=== PATIENT | female | born 1975 | race Caucasian/White ===

== ENCOUNTER 2017-01-22 17:31 | Emergency (ER) | payer BC ==
[~2017-01-22] VITALS: Ht 165.1 cm; Wt 64.3 kg
[~2017-01-22 17:31] MED LIST: CITA40TA12 PO; LORA-741 PO
[2017-01-22 17:33] VITALS: TEMP 36.8; Ht 165.1 cm; Wt 64.3 kg
[2017-01-22] MEDS ORDERED: FLUO40CA8 PO (18:12)
[2017-01-22] MEDS ORDERED: RABIES VACCINE (IMOVAX) HUMAN DIPL CELL 2.5 INTER.UNIT/ML SYR IM. ONE (18:15)
[2017-01-22] MEDS ORDERED: RABIES IMMUNE GLOBULIN (HUMAN) 150 INTER.UNIT/ML 2 ML VIAL IM. ONE (18:15)
--- NOTE | 2017-01-22 18:23 | EMERGENCY ROOM VISIT NOTE ---
ED Visit Note First contact with patient: 17:43 CHIEF COMPLAINT: Bat exposure in house while sleeping last night HISTORY OF PRESENT ILLNESS: Patient is a 41-year-old white female who presents to the emergency department, accompanied by her daughter and for evaluation after there was a bat found in their home last evening while they were sleeping. Bat was flying around the room where the patient's and daughter were sleeping, but she notes that all of the bedroom doors were open. was able to trap the bat in a box and to take it outside. The patient is not aware of any direct contact she may have had with the bat. Patient spoke with her daughter's candle pourer today, and subsequently were referred to the Department of Health who directed them to the emergency department for rabies prophylaxis. She has no complaints. REVIEW OF SYSTEMS: Review of systems as per HPI. All other systems reviewed were negative. At least 6 systems reviewed. PMH: Electronic medical records are reviewed and summarized as above/below. See Problem List. SOCIAL HISTORY: Patient lives at home with her and daughter. She is employed. Drinks alcohol socially, nonsmoker. PHYSICAL EXAM: Vital Signs: Reviewed Nurse's notes. HEAD: Atraumatic, without temporal or scalp tenderness. EYES: PERRL, EOMI, no discharge or injection. SKIN: Normal. NEUROLOGICAL: Alert and cooperative. Sensory and motor functions grossly intact. EMERGENCY DEPARTMENT COURSE: The patient was seen and examined as above. Risks , benefits and alternatives were reviewed, and patient would like to proceed with post exposure prophylactic vaccinations. Patient was given Imovax IM and rabies immunoglobulin based on her weight. She was observed in the emergency department and discharged. The postexposure vaccination schedule with outlined with her. She was discharged home in good condition. Medication reconciliation: I attest that I have personally reviewed the patient' s current medication list. Blood pressure screening: Patient was found to have an elevated blood pressure and was referred to their primary doctor for recheck and further treatment. Patient does report a history of hypertension. Problem List Medical Problems: (1) Anxiety Status: Chronic (2) Anxiety reaction Status: Resolved (3) Dizziness Status: Resolved (4) Panic attacks Status: Chronic (5) Sinusitis Status: Resolved Current/Historical Medications Scheduled Fluoxetine (Prozac), 40 MG PO DAILY Lisinopril (Lisinopril), 10 MG PO DAILY Allergies Coded Allergies: No Known Allergies (Verified , 6/19/17) Vital Signs Date Time Temp Pulse Resp B/P (MAP) Pulse Ox O2 Delivery O2 Flow Rate FiO2 01/22/17 19:07 73 18 168/86 96 Room Air 01/22/17 17:33 36.8 67 20 150/98 97 Room Air Medications Administered Medications (Trade) Dose Ordered Sig/Rik Route Start Time Stop Time Status Last Admin Dose Admin Rabies Vaccine Human Diploid Cell (Imovax Rabies) 2.5 interunit ONCE ONCE IM. 01/22/17 18:15 01/22/17 18:16 DC 01/22/17 19:02 2.5 INTERUNIT Rabies Immune Globulin (Imogam Rabies Inj) 1,280 interunit ONCE ONCE IM. 01/22/17 18:15 01/22/17 18:16 DC 01/22/17 19:03 1,280 INTERUNIT Departure Information Impression Primary Impression: Need for post exposure prophylaxis for rabies Referrals Donte De La Rosa M.D. ([facility]) (PCP) Patient Instructions [facility] Additional Instructions May use ice to the injection sites as needed for pain and swelling. Tylenol or ibuprofen if needed for discomfort. Return to the emergency department on 01/25, 01/29 and 02/05 for the remainder of your vaccinations, sooner for any problems or concerns.
[2017-01-22 19:07] VITALS: BP 168/86; PULSE 73; O2SAT 96
== END 2017-01-22 19:19 | disposition home or self-care (01) ==
LOC: C.EDB 17:31 → C.EDD 19:19
DX: Z20.3 Contact with and (suspected) exposure to rabies (principal); Z23 Encounter for immunization; F41.9 Anxiety disorder, unspecified; Z79.899 Other long term (current) drug therapy

== ENCOUNTER 2017-01-25 16:27 | Emergency (ER) | payer BC ==
[~2017-01-25] VITALS: Ht 167.6 cm; Wt 65.4 kg
[~2017-01-25 16:27] MED LIST changes: -CITA40TA12 PO; +FLUO40CA8 PO; -LORA-741 PO
[2017-01-25 16:39] VITALS: BP 158/93; TEMP 36.7; Ht 167.6 cm; Wt 65.4 kg
[2017-01-25] MEDS ORDERED: RABIES VACCINE (IMOVAX) HUMAN DIPL CELL 2.5 INTER.UNIT/ML SYR IM. ONE (16:45)
--- NOTE | 2017-01-25 17:38 | EMERGENCY ROOM VISIT NOTE ---
History First contact with patient: 16:42 Chief Complaint: RABIES VACCINE REPEAT VISIT Stated Complaint: 2ND RABIES VACCINE History of Present Illness The patient is a 41 year old female who presents to the Emergency Room for her second Imovax injection. The patient denies any adverse reactions from her initial visit. Review of Systems Noncontributory and unchanged from previous visit Past Medical/Surgical History Medical Problems: (1) Anxiety (2) Anxiety reaction (3) Dizziness (4) Panic attacks (5) Sinusitis Social History Smoking Status: Never Smoker Marital Status: Housing Status: lives with family Occupation Status: employed Current/Historical Medications Scheduled Fluoxetine (Prozac), 40 MG PO DAILY Lisinopril (Lisinopril), 10 MG PO DAILY Allergies Coded Allergies: No Known Allergies (Verified , 01/22/17) Physical Exam Vital Signs Date Time Temp Pulse Resp B/P (MAP) Pulse Ox O2 Delivery O2 Flow Rate FiO2 01/25/17 16:39 36.7 68 18 158/93 99 Room Air Physical Exam CONSTITUTIONAL: Healthy and well nourished. NTEGUMENTARY: No rash or other significant dermatologic conditions noted. NEUROLOGIC: Cranial nerves II-XII grossly intact. No focal neurologic deficits noted. Medical Decision & Procedures Medications Administered Medications (Trade) Dose Ordered Sig/Rik Route Start Time Stop Time Status Last Admin Dose Admin Rabies Vaccine Human Diploid Cell (Imovax Rabies) 2.5 interunit ONCE ONCE IM. 01/25/17 16:45 01/25/17 16:46 DC 01/25/17 17:07 2.5 INTERUNIT ED Course The patient received Imovax IM without adverse reaction. The patient will return on day 7 for her next Imovax injection, sooner with any further concerns. Medical Decision Impression Primary Impression: Need for prophylactic vaccination against rabies Departure Information Dispostion Home / Self-Care Forms HOME CARE DOCUMENTATION FORM, IMPORTANT VISIT INFORMATION Patient Instructions [facility] Additional Instructions Return on 01/29 for your next immunization
[2017-01-25 17:54] VITALS: PULSE 63; O2SAT 99
== END 2017-01-25 17:55 | disposition home or self-care (01) ==
LOC: C.EDB 16:28 → C.EDD 17:55
DX: Z23 Encounter for immunization (principal); Z20.3 Contact with and (suspected) exposure to rabies

== ENCOUNTER 2017-01-29 17:34 | Emergency (ER) | payer BC ==
[~2017-01-29] VITALS: Ht 167.6 cm; Wt 65.8 kg
[2017-01-29 17:46] VITALS: BP 133/81; PULSE 69; TEMP 36.7; O2SAT 98; Ht 167.6 cm; Wt 65.8 kg
[2017-01-29] MEDS ORDERED: FLUO20CA35 PO (17:55)
--- NOTE | 2017-01-29 17:59 | EMERGENCY ROOM VISIT NOTE ---
ED Visit Note First contact with patient: 17:48 Chief Complaint: Rabies Return Visit History of Present Illness: This patient is a 41-year-old female who presents to the Emergency Department ambulatory for their third Rabies Vaccination Injections. The patient reports that they had no reaction to previous injection. Patient denies the development of any fevers, chills, sweats, or URI symptoms. Medications: Unchanged from previous visit. Allergies: No known drug allergies PMH: Unchanged from previous visit. SHx: Patient lives locally with family. ROS: All pertinent positive and negative review of systems are appropriately documented in the History of Present Illness. Physical Exam: VITAL SIGNS - Vital signs and Nursing Notes were reviewed. GENERAL -this is a 41-year-old female, well-developed, well-nourished, and in no acute distress. SKIN - Without rashes or lesions. CARDIAC - RRR with normal S1 & S2. No murmurs, rubs, or gallops appreciated. RESPIRATORY - Clear to auscultation bilaterally. No wheezes, rales, or rhonchi appreciated. NEURO - Patient is A&Ox3 and communicates appropriately with the provider. ED Course: Previous ED visit note was reviewed by myself prior to patient evaluation. Patient reports no reaction to the previous injection(s). Patient received 2.5 units of Imovax intramuscularly. Patient was observed in the Emergency Department for greater than 20 minutes prior to discharge without signs of reaction. Patient was educated on worrisome symptoms for return visit to the Emergency Department. Patient discharged to home with the intent for follow-up in the Emergency Department as scheduled for the remainder of their injections. Medication reconciliation: I attest that I have personally reviewed the patient 's current medication list. Blood Pressure Screening: Patient was found to have a slightly elevated blood pressure due to circumstances. I do not believe that the patient requires hypertension monitoring. Impression: Rabies Prophylaxis Discharge Instructions: You were seen in the Emergency Department today for your Rabies Prophylaxis Injection. You should continue to follow the Discharge Instructions outlined for you in your initial Emergency Department visit. Your final rabies vaccination should be on 02/05/17. For pain or fever control, you can use the following ehxg-erw-toidnqu medicines (if >12 yo): - Regular strength (325mg/tab) Tylenol (acetaminophen) 2 tabs every 4-6 hours as needed. Do not exceed 12 tablets in a 24 hour period. Avoid taking more than 4 grams (4000 mg) of Tylenol per day. This includes any other sources of acetaminophen you may take on a regular basis. - Regular strength (200 mg/tab) Advil (ibuprofen) 1-2 tabs every 4-6 hours as needed. Do not exceed a dose of 3200 mg per day. Return to the emergency department if your symptoms worsen despite treatment course outlined above. Problem List Medical Problems: (1) Anxiety Status: Chronic (2) Anxiety reaction Status: Resolved (3) Dizziness Status: Resolved (4) Panic attacks Status: Chronic (5) Sinusitis Status: Resolved Current/Historical Medications Scheduled Fluoxetine (Prozac), 20 MG PO DAILY Lisinopril (Lisinopril), 10 MG PO DAILY Allergies Coded Allergies: No Known Allergies (Verified , 01/22/17) Vital Signs Date Time Temp Pulse Resp B/P (MAP) Pulse Ox O2 Delivery O2 Flow Rate FiO2 01/29/17 17:46 36.7 69 16 133/81 98 Room Air Medications Administered Medications (Trade) Dose Ordered Sig/Rik Route Start Time Stop Time Status Last Admin Dose Admin Rabies Vaccine Human Diploid Cell (Imovax Rabies) 2.5 interunit ONCE ONCE IM. 01/29/17 18:00 01/29/17 18:01 DC 01/29/17 18:12 2.5 INTERUNIT Departure Information Impression Primary Impression: Rabies, need for prophylactic vaccination against Dispostion Home / Self-Care Condition GOOD Referrals Donte De La Rosa M.D.([facility]) (PCP) Patient Instructions [facility] Additional Instructions You were seen in the Emergency Department today for your Rabies Prophylaxis Injection. You should continue to follow the Discharge Instructions outlined for you in your initial Emergency Department visit. Your final rabies vaccination should be on 02/05/17. For pain or fever control, you can use the following qtsv-hej-ezzserk medicines (if >12 yo): - Regular strength (325mg/tab) Tylenol (acetaminophen) 2 tabs every 4-6 hours as needed. Do not exceed 12 tablets in a 24 hour period. Avoid taking more than 4 grams (4000 mg) of Tylenol per day. This includes any other sources of acetaminophen you may take on a regular basis. - Regular strength (200 mg/tab) Advil (ibuprofen) 1-2 tabs every 4-6 hours as needed. Do not exceed a dose of 3200 mg per day. Return to the emergency department if your symptoms worsen despite treatment course outlined above.
[2017-01-29] MEDS ORDERED: RABIES VACCINE (IMOVAX) HUMAN DIPL CELL 2.5 INTER.UNIT/ML SYR IM. ONE (18:00)
== END 2017-01-29 18:22 | disposition home or self-care (01) ==
LOC: C.EDB 17:34 → C.EDD 18:22
DX: Z20.3 Contact with and (suspected) exposure to rabies (principal); Z23 Encounter for immunization; F41.9 Anxiety disorder, unspecified

== ENCOUNTER 2017-02-05 14:16 | Emergency (ER) | payer BC ==
[~2017-02-05 14:16] MED LIST changes: +FLUO20CA35 PO; -FLUO40CA8 PO
[2017-02-05 14:33] VITALS: BP 153/90; TEMP 36.9; Ht 167.6 cm
--- NOTE | 2017-02-05 15:35 | EMERGENCY ROOM VISIT NOTE ---
ED Visit Note First contact with patient: 15:11 Chief Complaint: Rabies Return Visit History of Present Illness: This patient is a 41-year-old female who presents to the Emergency Department ambulatory for their final Rabies Vaccination Injections. The patient reports that they had no reaction to previous injection. Patient denies the development of any fevers, chills, sweats, or URI symptoms. PMH: Unchanged from previous visit. SHx: Patient lives locally with family. ROS: All pertinent positive and negative review of systems are appropriately documented in the History of Present Illness. Physical Exam: VITAL SIGNS - Vital signs and Nursing Notes were reviewed. GENERAL -this is a 41-year-old female, well-developed, well-nourished, and in no acute distress. SKIN - Without rashes or lesions. NEURO - Patient is A&Ox3 and communicates appropriately with the provider. ED Course: Previous ED visit note was reviewed by myself prior to patient evaluation. Patient reports no reaction to the previous injection(s). Patient received 2.5 units of Imovax intramuscularly. Patient was observed in the Emergency Department for greater than 20 minutes prior to discharge without signs of reaction. Problem List Medical Problems: (1) Anxiety Status: Chronic (2) Anxiety reaction Status: Resolved (3) Dizziness Status: Resolved (4) Panic attacks Status: Chronic (5) Sinusitis Status: Resolved Current/Historical Medications Scheduled Fluoxetine (Prozac), 20 MG PO DAILY Lisinopril (Lisinopril), 10 MG PO DAILY Allergies Coded Allergies: No Known Allergies (Verified , 01/22/17) Vital Signs Date Time Temp Pulse Resp B/P (MAP) Pulse Ox O2 Delivery O2 Flow Rate FiO2 02/05/17 14:33 36.9 76 20 153/90 99 Room Air Departure Information Impression Primary Impression: Need for post exposure prophylaxis for rabies Referrals No Doctor, Assigned (PCP) Patient Instructions [facility] Additional Instructions Return to the emergency department as needed.
[2017-02-05] MEDS ORDERED: PRZ/40 PO (15:39)
[2017-02-05] MEDS ORDERED: RABIES VACCINE (IMOVAX) HUMAN DIPL CELL 2.5 INTER.UNIT/ML SYR IM. ONE (15:45)
[2017-02-05 16:40] VITALS: PULSE 73; O2SAT 98
[2017-02-05] MEDS ORDERED: LISI-461 PO (18:12)
== END 2017-02-05 16:42 | disposition home or self-care (01) ==
LOC: C.EDB 14:17 → C.EDD 16:42
DX: Z23 Encounter for immunization (principal); Z20.3 Contact with and (suspected) exposure to rabies; F41.0 Panic disorder [episodic paroxysmal anxiety]; Z79.899 Other long term (current) drug therapy